=== PATIENT | male | born 1985 | race Caucasian/White ===

== ENCOUNTER 2016-07-28 11:49 | Emergency (ER) | payer MEDICAID ==
[~2016-07-28] VITALS: Ht 170.2 cm; Wt 72.6 kg
[2016-07-28 12:24] VITALS: BP 118/78
[2016-07-28] MEDS ORDERED: ONDANSETRON HCL 4 MG/2 ML VIAL IM ONE (13:00)
[2016-07-28] MEDS ORDERED: HYDROmorphone HCL 2 MG/ML VL IM ONE (13:00)
== END 2016-07-28 15:18 | disposition home or self-care (01) ==
LOC: ER 11:49
DX: M47.896 Other spondylosis, lumbar region (principal); M54.9 Dorsalgia, unspecified; J45.909 Unspecified asthma, uncomplicated; M19.90 Unspecified osteoarthritis, unspecified site; Z88.0 Allergy status to penicillin
CPT/HCPCS: 72131; 96372; 99284; J1170; J2405

== ENCOUNTER 2016-09-10 03:44 | Emergency (ER) | payer MEDICAID ==
[~2016-09-10] VITALS: Ht 172.7 cm; Wt 69.4 kg
[2016-09-10 05:32] LABS: Basophils # (auto) 0.1 uL; Basophils % (auto) 0.4 % (0.0-2.0); Eosinophils # (auto) 0.6 uL; Eosinophils % (auto) 4.9 % (0.0-7.0); Hematocrit 42.2 % (41.0-53.0); Hemoglobin 14.1 g/dL (13.5-17.5); Lymphocytes # (auto) 2.3 uL; Lymphocytes % (auto) 17.8 % (10.0-50.0); Mean Corpuscular Hemoglobin 29.2 pg (28.0-32.0); Mean Corpuscular Hgb Conc. 33.4 g/dL (32.0-36.0); Mean Corpuscular Volume 87.4 fL (80.0-100.0); Mean Platelet Volume 8.6 fL (7.4-10.4); Monocytes # (auto) 0.9 uL; Monocytes % (auto) 6.5 % (0.0-12.0); Neutrophils # (auto) 9.3 uL; Neutrophils % (auto) 70.4 % (37.0-80.0); Platelet Count (auto) 268 10^3/uL (140-450); Red Cell Distribution Width 12.6 % (11.6-16.0); White Blood Cell 13.1 10^3/uL (4.4-10.8)
[2016-09-10 05:47] LABS: INR 1.08 (0.9-1.15); Partial Thromboplastin Time 27.4 sec (22.64-33.71); Prothrombin Time 11.1 sec (9.37-12.3)
[2016-09-10 06:00] LABS: Albumin 3.9 g/dL (3.4-5.0); Anion Gap 11 (5-15); Aspartate Aminotransferase 41 U/L (15-37); BUN/Creatinine Ratio 10.5; Blood Urea Nitrogen 10 mg/dL (7-18); Calcium 8.2 mg/dL (8.5-10.1); Carbon Dioxide 26 mmol/L (21-32); Chloride 104 mmol/L (98-107); GFR African American 118 mL/min; GFR Non-African American 98 mL/min; Glucose 81 mg/dL (74-106); Potassium 3.3 mmol/L (3.5-5.1); Sodium 141 mmol/L (136-145)
[2016-09-10 06:04] LABS: Alkaline Phosphatase 61 U/L (45-117); Bilirubin, Total 0.6 mg/dL (0.2-1.0); Total Protein 7.7 g/dL (6.4-8.2)
[2016-09-10 06:07] LABS: B-Type Natriuretic Peptide 11.42 pg/mL (0-100)
[2016-09-10 06:08] LABS: Temperature: 21.9 C (20.0-25.0)
[2016-09-10 07:41] VITALS: BP 121/63
== END 2016-09-10 07:50 | disposition home or self-care (01) ==
LOC: ER 03:46
DX: R55 Syncope and collapse (principal); J45.909 Unspecified asthma, uncomplicated; M19.90 Unspecified osteoarthritis, unspecified site; R06.02 Shortness of breath; Z88.0 Allergy status to penicillin; Y08.89XA Assault by other specified means, initial encounter; Y93.89 Activity, other specified; Y99.8 Other external cause status; Y92.89 Other specified places as the place of occurrence of the external cause
CPT/HCPCS: 36415; 80053; 83880; 84484; 85025; 85610; 85730; 93005; 94761

== ENCOUNTER 2016-10-03 17:51 | Emergency (ER) | payer MEDICAID ==
[~2016-10-03] VITALS: Ht 172.7 cm; Wt 72.6 kg
[2016-10-03 19:55] VITALS: BP 115/73
[2016-10-03] MEDS ORDERED: KETOROLAC TROMETH 60MG/2ML VIAL IM ONE (20:45)
== END 2016-10-03 21:02 | disposition home or self-care (01) ==
LOC: ER 18:00
DX: M25.512 Pain in left shoulder (principal); M54.9 Dorsalgia, unspecified; J45.909 Unspecified asthma, uncomplicated; M47.896 Other spondylosis, lumbar region; Z88.0 Allergy status to penicillin
CPT/HCPCS: 73030; 96372; 99284; J1885

== ENCOUNTER 2016-10-15 14:55 | Emergency (ER) | payer MEDICAID ==
[~2016-10-15] VITALS: Ht 172.7 cm; Wt 70.8 kg
[2016-10-15 15:44] VITALS: BP 122/84
== END 2016-10-15 16:40 | disposition home or self-care (01) ==
LOC: ER 15:16
DX: M25.512 Pain in left shoulder (principal); J45.909 Unspecified asthma, uncomplicated; M19.90 Unspecified osteoarthritis, unspecified site; Z88.0 Allergy status to penicillin

== ENCOUNTER 2017-04-26 22:54 | Emergency (ER) | payer MEDICAID ==
[~2017-04-26] VITALS: Ht 172.7 cm; Wt 68.0 kg
[2017-04-26 23:10] VITALS: BP 119/71
[2017-04-26 23:41] LABS: Basophils # (auto) 0.1 uL; Basophils % (auto) 0.6 % (0.0-2.0); Eosinophils # (auto) 0.7 uL; Eosinophils % (auto) 7.4 % (0.0-7.0); Hematocrit 43.7 % (41.0-53.0); Hemoglobin 15.1 g/dL (13.5-17.5); Lymphocytes # (auto) 2.5 uL; Lymphocytes % (auto) 25.6 % (10.0-50.0); Mean Corpuscular Hemoglobin 30.6 pg (28.0-32.0); Mean Corpuscular Hgb Conc. 34.7 g/dL (32.0-36.0); Mean Corpuscular Volume 88.4 fL (80.0-100.0); Mean Platelet Volume 8.4 fL (6.9-10.8); Monocytes # (auto) 0.7 uL; Monocytes % (auto) 7.1 % (0.0-12.0); Neutrophils # (auto) 5.7 uL; Neutrophils % (auto) 59.3 % (37.0-80.0); Nucleated Red Blood Cells % 0.1 %; Platelet Count (auto) 295 10^3/uL (140-450); Red Cell Distribution Width 12.6 % (11.8-14.3); White Blood Cell 9.7 10^3/uL (4.4-10.8)
[2017-04-27 00:03] LABS: Alkaline Phosphatase 72 U/L (45-117); Anion Gap 8 (5-15); Aspartate Aminotransferase 17 U/L (15-37); Bilirubin, Total 0.3 mg/dL (0.2-1.0); Blood Urea Nitrogen 15 mg/dL (7-18); Calcium 8.1 mg/dL (8.5-10.1); Carbon Dioxide 28 mmol/L (21-32); Chloride 103 mmol/L (98-107); GFR African American 119 mL/min; GFR Non-African American 98 mL/min; Glucose 89 mg/dL (74-106); Magnesium 2.2 mg/dL (1.6-2.6); Potassium 3.5 mmol/L (3.5-5.1); Sodium 139 mmol/L (136-145)
[2017-04-27 00:45] LABS: Urine Bilirubin Negative (Negative); Urine Blood Negative /uL (Negative); Urine Color Yellow (Yellow); Urine Glucose Normal (Normal); Urine Ketone Negative (Negative); Urine Mucus FEW (None Seen); Urine Nitrite Negative (Negative); Urine RBC 1 /hpf (0 - 3); Urine Squamous Epithelial Cell FEW /hpf (<5)
== END 2017-04-27 04:00 | disposition left against medical advice (07) ==
LOC: ER 22:58
DX: R07.9 Chest pain, unspecified (principal); Z53.21 Procedure and treatment not carried out due to patient leaving prior to being seen by health care provider
CPT/HCPCS: 36415; 80053; 80307; 81001; 83735; 84443; 84484; 85025; 93005

== ENCOUNTER 2017-04-27 18:07 | Emergency (ER) | payer MEDICAID, OTHER ==
[~2017-04-27] VITALS: Ht 172.7 cm; Wt 68.0 kg
[2017-04-27 18:19] VITALS: BP 101/70
== END 2017-04-27 21:39 | disposition home or self-care (01) ==
LOC: ER 18:09
DX: Z76.1 Encounter for health supervision and care of foundling (principal); Z01.89 Encounter for other specified special examinations; J45.909 Unspecified asthma, uncomplicated; M19.90 Unspecified osteoarthritis, unspecified site; Z88.0 Allergy status to penicillin

== ENCOUNTER 2018-12-20 20:54 | Emergency (ER) | payer MEDICAID ==
[~2018-12-20] VITALS: Ht 175.3 cm; Wt 72.6 kg
[2018-12-20 21:52] VITALS: BP 102/62
== END 2018-12-21 00:50 | disposition left against medical advice (07) ==
LOC: ER 20:54
DX: R51 Headache (principal); Z53.21 Procedure and treatment not carried out due to patient leaving prior to being seen by health care provider
CPT/HCPCS: 70450

== ENCOUNTER 2020-04-10 00:01 | Emergency (ER) | payer MEDICAID ==
[~2020-04-10] VITALS: Ht 175.3 cm; Wt 72.6 kg
[2020-04-10 04:00] VITALS: BP 113/72
[2020-04-10] MEDS ORDERED: methylPREDNISolone SOD SUCC 125 MG/2 ML VL IM ONE (06:00)
[2020-04-10] MEDS ORDERED: KETOROLAC TROMETH 60MG/2ML VIAL IM ONE (06:00)
== END 2020-04-10 07:12 | disposition home or self-care (01) ==
LOC: ER 00:11
DX: M51.36 Other intervertebral disc degeneration, lumbar region (principal); J45.909 Unspecified asthma, uncomplicated; Z88.0 Allergy status to penicillin
CPT/HCPCS: 72131; 96372; 99284; J1885; J2930

== ENCOUNTER 2021-03-05 12:50 | Emergency (ER) | payer MEDICAID, OTHER ==
[~2021-03-05] VITALS: Ht 172.7 cm; Wt 78.5 kg
[2021-03-05 15:56] VITALS: BP 114/79
[2021-03-05] MEDS ORDERED: NEOMYCIN-BACITRACIN-POLYM 15GM TOP OINT TOP SCH (22:00)
== END 2021-03-05 16:17 | disposition home or self-care (01) ==
LOC: ER 12:50
DX: S80.12XA Contusion of left lower leg, initial encounter (principal); S20.222A Contusion of left back wall of thorax, initial encounter; J45.909 Unspecified asthma, uncomplicated; Z88.0 Allergy status to penicillin; V43.52XA Car driver injured in collision with other type car in traffic accident, initial encounter; Y93.89 Activity, other specified; Y92.410 Unspecified street and highway as the place of occurrence of the external cause; Y99.8 Other external cause status
CPT/HCPCS: 70450; 72131; 73590; 93971